=== PATIENT | male | born 1995 | race African-American/Black ===

== ENCOUNTER 2018-04-14 02:35 | Emergency (ER) | payer SELFPAY ==
[2018-04-14] MEDS ORDERED: Ketorolac Tromethamine 30 MG/ML VIAL ONE (02:41)
== END 2018-04-14 03:04 | disposition home or self-care (01) ==
LOC: SCSER 02:35
DX: K04.7 Periapical abscess without sinus (principal); K02.9 Dental caries, unspecified; F17.210 Nicotine dependence, cigarettes, uncomplicated; Z71.6 Tobacco abuse counseling
CPT/HCPCS: 96372; 99406; J1885